=== PATIENT | male | born 1940 | race Caucasian/White ===

== ENCOUNTER 2017-12-12 08:47 | Inpatient (IN) | payer MEDICARE ==
[~2017-12-12] VITALS: Ht 172.7 cm; Wt 86.2 kg
[~2017-12-12 08:47] MED LIST: COLACE100 MG PO; OMEPRAZOLE20 MG PO; PERCOCET 5-3251 EACH PO; ZOFRAN ODT4 MG PO
[2017-12-12] MEDS ORDERED: ZITHROMAX250 MG PO (09:06)
[2017-12-12] MEDS ORDERED: COLACE100 MG PO (16:33)
[2017-12-12] MEDS ORDERED: PERCOCET 5-3251 EACH PO (16:35)
--- NOTE | 2017-12-13 14:53 | EKG ---
[facility] [address] [facility] [place] [address] Signed Normal sinus rhythm Left axis deviation Low voltage QRS Inferior infarct , age undetermined Abnormal ECG No previous ECGs available Confirmed by CHANEL REA MD ([id number]) on 12/13/2017 2:52:51 PM Electronically Signed By: CHANEL REA MD 12/13/17 1453 PATIENT NAME: EMILY JONES JR REAGAN Electrocardiogram DATE OF : 44 PHYSICIAN: CHANEL REA MD REPORT #: [id number] REPORT IS CONFIDENTIAL AND NOT TO BE RELEASED WITHOUT AUTHORIZATION
[2017-12-14] MEDS ORDERED: AUGMENTIN 875-1 EACH PO (10:47)
[2017-12-14] MEDS ORDERED: OSELTAMIVIR PHO30 MG PO (10:47)
[2017-12-14] MEDS ORDERED: PSEUDOEPHEDRIN120 MG PO (10:48)
[2017-12-14] MEDS ORDERED: TAMSULOSIN HCL0.4 MG PO (10:48)
[2017-12-14] MEDS ORDERED: MIRAPEX0.25 MG PO (10:49)
[2017-12-14] MEDS ORDERED: DEEP SEA44 ML NAS (10:50)
[2017-12-14] MEDS ORDERED: FLUTICASONE PRO16 GM NAS (10:50)
[2017-12-14] MEDS ORDERED: PRAMIPEXOLE0.125 MG PO (10:53)
== END 2017-12-14 13:08 | disposition home or self-care (01) | DRG 152 ==
LOC: ED 08:47 → MS 11:49
PROVIDERS: ADMIT Internal Medicine
DX: J11.1 Influenza due to unidentified influenza virus with other respiratory manifestations (principal); J96.01 Acute respiratory failure with hypoxia; B96.89 Other specified bacterial agents as the cause of diseases classified elsewhere; R60.9 Edema, unspecified; N40.0 Benign prostatic hyperplasia without lower urinary tract symptoms; G25.81 Restless legs syndrome; K59.09 Other constipation; M54.41 Lumbago with sciatica, right side
CPT/HCPCS: 36415; 70450; 71045; 71046; 80048; 80053; 81001; 83605; 83735; 83880; 85025; 85610; 87502; 93005; 93010; 93970; 94668; J0295; J0456; J1650; J2405; J7030; J7120

== ENCOUNTER 2021-12-10 14:01 | Emergency (ER) | payer MEDICARE ==
[~2021-12-10] VITALS: Ht 172.7 cm; Wt 86.2 kg
[~2021-12-10 14:01] MED LIST changes: +AUGMENTIN 875-1 EACH PO; +DEEP SEA44 ML NAS; +FLUTICASONE PRO16 GM NAS; +MIRAPEX0.25 MG PO; +OSELTAMIVIR PHO30 MG PO; +PRAMIPEXOLE0.125 MG PO; +PSEUDOEPHEDRIN120 MG PO; +TAMSULOSIN HCL0.4 MG PO; +ZITHROMAX250 MG PO
--- OUTSIDE RECORDS SUMMARY | 2021-12-10 14:08 | XMS ---
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 E.Nikhil VISIT COUNT (12 MO.) 1 [facility] Josef Hdoges [address] [place] [address] TOTAL 2 NOTE: Visits indicate total known visits. ED/UCC VISIT TRACKING (12 MO.) 12/10/2021 14:01 [facility] [place] TYPE: Emergency COMPLAINT: - BLOODY NOSE 12/10/2021 10:46 [facility] [place] TYPE: Emergency INPATIENT VISIT TRACKING (12 MO.) No inpatient visits to display in this time frame [email or web address]
[2021-12-10] MEDS ORDERED: ASPIRIN81 MG PO (14:14)
[2021-12-10] MEDS ORDERED: LISINOPRIL20 MG PO (14:14)
[2021-12-10] MEDS ORDERED: PANTOPRAZOLE SO20 MG PO (14:14)
[2021-12-10] MEDS ORDERED: ATORVASTATIN CA80 MG PO (14:14)
[2021-12-10] MEDS ORDERED: LEVOTHYROXINE75 MCG PO (14:14)
[2021-12-10] MEDS ORDERED: METOPROLOL SUCC25 MG PO (14:14)
== END 2021-12-10 16:12 | disposition home or self-care (01) ==
LOC: ED 14:01
DX: R04.0 Epistaxis (principal); Z88.1 Allergy status to other antibiotic agents; Z79.82 Long term (current) use of aspirin; Z79.899 Other long term (current) drug therapy
CPT/HCPCS: 30903; 36415; 80048; 85025; 85610; 85730; 86850; 86900; 86901; 99284-25; J2405; J7040

== ENCOUNTER 2023-02-20 09:50 | Day surgery (SDC) | payer MEDICARE ==
[2023-02-17 16:20] VITALS: BP 174/100
[~2023-02-20] VITALS: Ht 172.7 cm; Wt 79.5 kg
[~2023-02-20 09:50] MED LIST changes: +ARICEPT10 MG PO; +ASPIRIN81 MG PO; +ATORVASTATIN CA80 MG PO; +CLOBETASOL 0.0560 G1 TOP; +DAILY VALUE1 EACH PO; +FLUTICASONE-SAL12 GM INH; +GALANTAMINE HBR4 MG PO; +HYDROCHLOROTH12.5 MG PO; +LEVOTHYROXINE75 MCG PO; +LISINOPRIL20 MG PO; +METOPROLOL SUCC25 MG PO; +NORVASC5 MG PO; +PANTOPRAZOLE SO20 MG PO
[2023-02-20 10:01] VITALS: BP 148/94
[2023-02-20] MEDS ORDERED: NAMENDA5 MG PO (10:07)
--- NOTE | 2023-02-20 11:12 | NUR ---
PT LAYING IN BED WITH HIS EYES CLOSED. PT OPENS HIS EYES WHEN THE DOOR OPENS. PT UPDATED ON TIME FOR SURGERY. PT HAS NO REQUESTS AT THIS TIME. CALL LIGHT WITH PT.
--- NOTE | 2023-02-20 13:30 | NUR ---
02/20/23 1330 Keke Hernandez 1325-PATIENT ARRIVED TO PACU ON RA RR EVEN. PATIENT AWAKE DENIES PAIN OR NAUSEA. PATIENT ABLE TO WIGGLE TOES A LITTLE BIT UNABLE TO LIFT LEGS UP. REPORTS "NUMBNESS" WHEN RN TOUCHING FEET. SR WITH PVCS
[2023-02-20] MEDS ORDERED: METAMUCIL PACK3.4 GM PO (13:52)
[2023-02-20] MEDS ORDERED: ACETAMINOPHEN500 MG PO (13:52)
[2023-02-20] MEDS ORDERED: IBUPROFEN600 MG PO (13:52)
[2023-02-20] MEDS ORDERED: HYDROMORPHONE HC4 MG PO (13:52)
[2023-02-20 14:13] VITALS: BP 172/92
--- NOTE | 2023-02-20 14:13 | NUR ---
PT ARRIVES TO DAY SURGERY ROOM #4. PT REPORTS NO PAIN OR NAUSEA. PT IS ABLE TO MOVE HIS FEET SLIGHTLY. PT STATES THEY FEEL NUMB. PT'S CALLED AND UPDATED BY ONESIMO HASTINGS RN. OFFERED HIS TO TAKE THE PAIN PRESCRIPTION TO A PHARMACY HERE HIS PHARMACY MIGHT BE CLOSED BEFORE HE GETS HOME. THE PT AND PT'S WANT TO WAIT TO FILL THE PRESCRIPTION AT HOME. PT PROVIDED PUDDING AND CRACKERS. PT CONTINING TO DRINK WATER. PT HAS CALL LIGHT WITH HIM, BED RAIL UP X1.
[2023-02-20] MEDS ORDERED: MILK OF MA400 MG/5 M PO (14:59)
[2023-02-20 15:11] VITALS: BP 173/86
--- NOTE | 2023-02-20 15:14 | NUR ---
PT ABLE TO AMBULATE TO THE RESTROOM WITH 2 PA. PT REPORTS HIS FEET FEEL HEAVY. PT ABLE TO SIT DOWN TO URINATE. URINATES 100 ML OF CONCENTRATED URINE. PT ABLE TO AMBULATE BACK TO BED WITH 1 PA. TOLERATED WELL. PT CONTINUES TO REPORT HIS FEET FEEL HEAVY. UPDATED PT THAT HE SHOULD STAY UNTIL HE CAN FEEL HIS FEET BETTER. PT AGREEABLE TO THIS. CALL LIGHT PROVIDED, BED RAIL UP X1. PT HAS NO OTHER REQUESTS AT THIS TIME.
--- NOTE | 2023-02-20 15:55 | NUR ---
PT AMBULATED TO THE RESTROOM AND BACK. PT REPORTS NO HEAVINESS IN HIS FEET AND FULL SENSATION BACK. PT STATES HE IS HAVING 2/10 PAIN IN HIS "RECTUM". PT DENIES WANTING TO TAKE ANYTHING FOR PAIN. PT WANTS TO GET DRESSED TO GO HOME. PT'S CONTACTED FOR A RIDE HOME.
--- NOTE | 2023-02-20 16:04 | NUR ---
PT'S IN THE ROOM TO GO OVER DC INSTRUCTIONS WITH THE PT. PRESCRIPTION PROVIDED AND UPDATED ABOUT OTHER PRESCRIPTIONS BEING ELECTRONICALLY SENT TO THEIR PHARMACY. PROVIDED WITH DEPENDS AND A FEW ABD PADS FOR DRAINAGE.
[2023-02-20 16:06] VITALS: BP 150/100
--- NOTE | 2023-02-20 16:10 | NUR ---
PT ABLE TO AMBULATE TO THE WHEELCHAIR AND TAKEN TO THE FRONT OF THE HOSPITAL TO MEET HIS .
--- NOTE | 2023-02-21 13:28 | OR ---
[facility] [address] [place], [place] [address] Signed DATE OF OPERATION: 02/20/2023 SURGEON: Pelon Singh MD PREOPERATIVE DIAGNOSIS: Symptomatic external hemorrhoidal disease. POSTOPERATIVE DIAGNOSIS: 1. Symptomatic external hemorrhoidal disease. 2. Internal and external hemorrhoidal disease and left lateral and right anterior hemorrhoidal complexes. PROCEDURE: 1. Exam under anesthesia. 2. Excision of internal and external hemorrhoidal complex x2 and external complex x1. ANESTHESIA: Spinal block with intravenous sedation (Tarik De La Torre MANAGER SHIP and 10 mL of 0.25% Marcaine with epinephrine. 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 He notes redundant external hemorrhoidal tissue and had been problematic for him for at least five years. He has a fair amount of perianal hygiene problems related to this. He is admitted at this time to undergo hemorrhoidectomy extensively for external hemorrhoidal disease alone. He understands the risk of bleeding, infection, recurrence, and other unforeseen complications related to hemorrhoidectomy and wished to proceed. FINDINGS: The left lateral hemorrhoidal complex was the largest including both internal and external component for which complete excision was undertaken. The right anterior hemorrhoidal complex was smaller, but still include internal hemorrhoidal change. The right posterior hemorrhoidal issue was dominantly external. Complete excision was undertaken without complication. DESCRIPTION OF PROCEDURE: The patient was brought to the operating room, given a spinal anesthetic (saddle block anesthetic) and placed in prone madhav-knife position. The buttocks were taped apart. The perianal area was prepared with a Betadine based solution. He had undergone a bowel Electronically Signed By: PELON SINGH MD 02/21/23 1328 PATIENT NAME: EMILY JONES JR OPERATIVE REPORT DATE OF : 44 REPORT #: [id number] PHYSICIAN: PELON SINHG MD PCP: JOSE A SORIANO PAC REPORT IS CONFIDENTIAL AND NOT TO BE RELEASED WITHOUT AUTHORIZATION [facility] [address] [place], [place] [address] Signed prep preoperatively. Preoperative antibiotics intravenously administered were given as well. Digital examination was found to be normal without sign of rectal neoplasm. An anal retractor was placed. Examination showed the left lateral hemorrhoidal complex to be not only in external component, but an internal component, which was sizable. This was excised in total, placing a 2-0 chromic suture with a UR needle in the upper origin of the hemorrhoidal complex ligated and then excising the external component as well as internal components. Once excised, they were passed for pathology and the remaining mucosal defect was reapproximated with running 2-0 chromic suture. An area was left open laterally to allow for drainage as needed. With similar technique, the right anterior hemorrhoidal complex, both internal and external component were excised and finally the right posterior hemorrhoidal complex similar technique, but without much of an internal component also excised. A 10 mL of 0.25% Marcaine with epinephrine was injected locally. This was in each on the right and the left. A peripad was applied. He was returned to supine position, ultimately taken to recovery room in good condition. MD NATHALIE Max/MODL /[id number] cc: Jose A Soriano PA-C Copies: JOSE A SORIANO ~ Electronically Signed By: PELON SINGH MD 02/21/23 1328 PATIENT NAME: EMILY JONES OPERATIVE REPORT DATE OF : 44 REPORT #: [id number] PHYSICIAN: PELON SINGH MD PCP: JOSE A SORIANO REPORT IS CONFIDENTIAL AND NOT TO BE RELEASED WITHOUT AUTHORIZATION
== END 2023-02-20 16:10 | disposition home or self-care (01) ==
LOC: DS 09:50
PROVIDERS: ATTEND Surgery
DX: K64.4 Residual hemorrhoidal skin tags (principal); I10 Essential (primary) hypertension; I25.2 Old myocardial infarction; Z79.899 Other long term (current) drug therapy; Z79.82 Long term (current) use of aspirin; Z86.010 Personal history of colon polyps
CPT/HCPCS: J0690; J2001; J2704; J7121